=== PATIENT | male | born 1950 | race Caucasian/White ===

== ENCOUNTER 2019-08-01 11:58 | Inpatient (IN) ==
[2019-08-01] MEDS ORDERED: Vancomycin 1,750 MG/517.5 ML IV.SOLN IVPB ONE (13:11)
[2019-08-01 14:00] LABS: Basophils % 0.3 %; Eosinophils # 0.1 K/mcL (0.0-0.6); Eosinophils % 1.5 %; Hematocrit 39.6 % (37.5-50.1); Hemoglobin 12.5 g/dL (12.9-16.9); Immature Granulocytes % 0.3 % (0-4); Lymphocytes # 1.4 K/mcL (0.6-4.6); Lymphocytes % 16.4 %; Mean Corpuscular HGB Conc 31.6 g/dL (31.6-35.5); Mean Corpuscular Hemoglobin 29.8 pg (28.0-33.3); Mean Corpuscular Volume 94.3 fL (83.0-100.0); Mean Platelet Volume 9.6 fL (9.4-12.4); Monocytes # 1.1 K/mcL (0.0-1.3); Monocytes % 12.1 %; Platelet Count 278 K/mcL (140-400); Red Cell Distribution Width 13.4 % (11.5-14.5); Segmented Neutrophils % 69.4 %; White Blood Count 8.7 K/mcL (4.3-11.1)
[2019-08-01 14:45] LABS: BUN/Creatinine Ratio 18 (6-26); Blood Urea Nitrogen 16 mg/dL (8-23); Carbon Dioxide 28 mEq/L (23-29); Chloride 102 mEq/L (98-107); Glucose 142 mg/dL (70-105); Osmolality,Calculated 292 (280-300); Potassium 3.8 mEq/L (3.5-5.1); Sodium 139 mEq/L (136-145); eGFR For African Americans > 60 (> 60); eGFR For Non-African Americans > 60 (> 60)
[2019-08-01 15:35] LABS: C-Reactive Protein 201 mg/L (Less than 10)
[2019-08-01] MEDS ORDERED: Naloxone 0.4 MG/ML INJ IVP PRN (17:35)
[2019-08-01] MEDS: Aspirin Enteric Coated 81 MG Tablet PO SCH (18:41)
[2019-08-01] MEDS: Losartan/HCTZ 50-12.5 TABLET PO SCH (18:57)
[2019-08-01] MEDS: Finasteride 5 MG TABLET PO SCH (18:57)
[2019-08-01] MEDS: Insulin LISPRO 300 UNITS/3 ML VIAL SQ SCH (19:53)
[2019-08-01] MEDS ORDERED: Acetaminophen 325 MG TABLET PO PRN (19:57)
[2019-08-01] MEDS ORDERED: *HR* OxyCODONE Immed Rel 5 MG TABLET PO PRN (19:58)
[2019-08-01] MEDS ORDERED: Ketorolac 15 MG/ML VIAL IVP PRN (19:58)
[2019-08-02] MEDS ORDERED: Vancomycin 1,750 MG/517.5 ML IV.SOLN IVPB ONE (01:00)
[2019-08-02 05:53] LABS: Basophils % 0.5 %; Eosinophils # 0.2 K/mcL (0.0-0.6); Eosinophils % 2.1 %; Hematocrit 36.2 % (37.5-50.1); Hemoglobin 11.3 g/dL (12.9-16.9); Immature Granulocytes % 0.5 % (0-4); Lymphocytes # 1.8 K/mcL (0.6-4.6); Lymphocytes % 21.7 %; Mean Corpuscular HGB Conc 31.2 g/dL (31.6-35.5); Mean Corpuscular Hemoglobin 29.6 pg (28.0-33.3); Mean Corpuscular Volume 94.8 fL (83.0-100.0); Mean Platelet Volume 9.8 fL (9.4-12.4); Monocytes # 1.1 K/mcL (0.0-1.3); Monocytes % 12.9 %; Neutrophils # 5.2 K/mcL (1.6-8.9); Platelet Count 272 K/mcL (140-400); Red Blood Count 3.82 M/mcL (4.19-5.50); Red Cell Distribution Width 13.3 % (11.5-14.5); Segmented Neutrophils % 62.3 %; White Blood Count 8.3 K/mcL (4.3-11.1)
[2019-08-02 06:09] LABS: BUN/Creatinine Ratio 21 (6-26); Blood Urea Nitrogen 16 mg/dL (8-23); Calcium 9.5 mg/dL (8.6-10.3); Carbon Dioxide 27 mEq/L (23-29); Chloride 101 mEq/L (98-107); Glucose 163 mg/dL (70-105); Osmolality,Calculated 287 (280-300); Potassium 3.7 mEq/L (3.5-5.1); Sodium 136 mEq/L (136-145); eGFR For African Americans > 60 (> 60); eGFR For Non-African Americans > 60 (> 60)
[2019-08-02] MEDS: Insulin LISPRO 300 UNITS/3 ML VIAL SQ SCH ×4 (08:27→21:33)
[2019-08-02 08:40] LABS: Estimated Average Glucose 160 mg/dl
[2019-08-02] MEDS ORDERED: *HR* OxyCODONE/APAP 10/325 TABLET PO PRN (08:43)
[2019-08-02] MEDS: Vancomycin 1,250 MG/262.5 ML IV.SOLN IVPB SCH (14:24)
[2019-08-02] MEDS: Finasteride 5 MG TABLET PO SCH (17:42)
[2019-08-02] MEDS: Aspirin Enteric Coated 81 MG Tablet PO SCH (17:42)
[2019-08-02] MEDS: Losartan/HCTZ 50-12.5 TABLET PO SCH (17:42)
[2019-08-02] MEDS ORDERED: *HR* Heparin 5,000 UNIT/ML VIAL SQ SCH (18:00)
[2019-08-02] MEDS: Insulin DETEMIR 100 UNIT/ML X5UNITS SQ SCH (21:46)
[2019-08-02] MEDS: *HR* OxyCODONE/APAP 10/325 TABLET PO PRN (21:46)
[2019-08-03] MEDS ORDERED: *HR* Heparin 5,000 UNIT/ML VIAL IVP ONE (00:58)
[2019-08-03] MEDS ORDERED: *HR* Heparin 5,000 UNIT/ML VIAL IVP PRN ×2 (00:58)
[2019-08-03] MEDS ORDERED: Heparin 25,000 UNIT/250 ML D5W 25,000 UNIT/250 ML IV.SOLN IVC SCH (01:00)
[2019-08-03] MEDS: Vancomycin 1,250 MG/262.5 ML IV.SOLN IVPB SCH ×2 (01:39→13:31)
[2019-08-03 08:47] LABS: Hematocrit 39.1 % (37.5-50.1); Hemoglobin 12.5 g/dL (12.9-16.9); Mean Corpuscular Hemoglobin 29.8 pg (28.0-33.3); Mean Corpuscular Volume 93.3 fL (83.0-100.0); Mean Platelet Volume 9.1 fL (9.4-12.4); Platelet Count 289 K/mcL (140-400); Red Blood Count 4.19 M/mcL (4.19-5.50); Red Cell Distribution Width 13.2 % (11.5-14.5); White Blood Count 6.8 K/mcL (4.3-11.1)
[2019-08-03 08:50] LABS: Heparin anti-factor XA UFH 0.75 IU/mL (0.30-0.70); Prothrombin Time 11.9 Seconds (9.4-12.1)
[2019-08-03 09:11] LABS: Activated Partial Thrombo Time 163.8 Seconds (26.0-36.0)
[2019-08-03] MEDS: Insulin LISPRO 300 UNITS/3 ML VIAL SQ SCH ×4 (09:19→20:44)
[2019-08-03] MEDS: *HR* OxyCODONE/APAP 10/325 TABLET PO PRN ×2 (09:25→19:53)
[2019-08-03] MEDS: Finasteride 5 MG TABLET PO SCH (16:24)
[2019-08-03] MEDS: Losartan/HCTZ 50-12.5 TABLET PO SCH (16:24)
[2019-08-03] MEDS: Aspirin Enteric Coated 81 MG Tablet PO SCH (16:24)
[2019-08-03] MEDS: *HR* Rivaroxaban 15 MG TABLET PO SCH (16:24)
[2019-08-03] MEDS ORDERED: Warfarin perPT PO PRN (18:00)
[2019-08-03] MEDS ORDERED: *HR* Warfarin 5 MG TABLET PO ONE (18:00)
[2019-08-03] MEDS: Insulin DETEMIR 100 UNIT/ML X5UNITS SQ SCH (20:42)
[2019-08-04] MEDS: Vancomycin 1,250 MG/262.5 ML IV.SOLN IVPB SCH (01:24)
[2019-08-04 06:56] LABS: Basophils % 0.6 %; Eosinophils # 0.2 K/mcL (0.0-0.6); Eosinophils % 2.5 %; Hematocrit 39.6 % (37.5-50.1); Hemoglobin 12.9 g/dL (12.9-16.9); Immature Granulocytes % 0.4 % (0-4); Lymphocytes # 1.9 K/mcL (0.6-4.6); Lymphocytes % 27.4 %; Mean Corpuscular HGB Conc 32.6 g/dL (31.6-35.5); Mean Corpuscular Hemoglobin 30.6 pg (28.0-33.3); Mean Corpuscular Volume 94.1 fL (83.0-100.0); Mean Platelet Volume 9.1 fL (9.4-12.4); Monocytes # 0.8 K/mcL (0.0-1.3); Monocytes % 11.1 %; Neutrophils # 3.9 K/mcL (1.6-8.9); Platelet Count 312 K/mcL (140-400); Red Blood Count 4.21 M/mcL (4.19-5.50); Red Cell Distribution Width 13.2 % (11.5-14.5); White Blood Count 6.8 K/mcL (4.3-11.1)
[2019-08-04 06:57] LABS: INR 1.4; Prothrombin Time 15.5 Seconds (9.4-12.1)
[2019-08-04 07:15] LABS: BUN/Creatinine Ratio 17 (6-26); Blood Urea Nitrogen 14 mg/dL (8-23); Calcium 10.2 mg/dL (8.6-10.3); Carbon Dioxide 29 mEq/L (23-29); Chloride 101 mEq/L (98-107); Glucose 163 mg/dL (70-105); Osmolality,Calculated 290 (280-300); Sodium 138 mEq/L (136-145); eGFR For African Americans > 60 (> 60); eGFR For Non-African Americans > 60 (> 60)
[2019-08-04 07:29] VITALS: BP 161/79
[2019-08-04] MEDS: *HR* Rivaroxaban 15 MG TABLET PO SCH (07:56)
[2019-08-04] MEDS: *HR* OxyCODONE/APAP 10/325 TABLET PO PRN (07:56)
[2019-08-04] MEDS: Insulin LISPRO 300 UNITS/3 ML VIAL SQ SCH (07:58)
[2019-08-04] MEDS ORDERED: Doxycycline 100 MG CAPSULE PO SCH (09:00)
[2019-08-04] MEDS ORDERED: Sulfamethoxazole/Trimeth DS 1 EACH TABLET PO SCH (09:00)
== END 2019-08-04 10:10 | disposition home or self-care (01) | DRG 603 ==
LOC: 3ANU 11:58 → EMEROOARM 11:58 → SUATTDRO 15:16 → 3ANU 16:23 → SUATTDRO 08-02 10:56
PROVIDERS: ADMIT Internal Medicine; ATTEND Family Medicine

== ENCOUNTER 2020-01-19 19:22 | Inpatient (IN) ==
[2020-01-19] MEDS ORDERED: Dexamethasone 4 MG/ML VIAL IVP ONE (20:03)
[2020-01-19 20:20] LABS: Basophils % 0.3 %; Hematocrit 36.6 % (37.5-50.1); Hemoglobin 12.5 g/dL (12.9-16.9); Immature Granulocytes % 0.6 % (0-4); Lymphocytes # 0.5 K/mcL (0.6-4.6); Lymphocytes % 13.8 %; Mean Corpuscular HGB Conc 34.2 g/dL (31.6-35.5); Mean Corpuscular Volume 87.8 fL (83.0-100.0); Monocytes # 0.3 K/mcL (0.0-1.3); Monocytes % 8.8 %; Neutrophils # 2.8 K/mcL (1.6-8.9); Platelet Count 179 K/mcL (140-400); Red Blood Count 4.17 M/mcL (4.19-5.50); Red Cell Distribution Width 13.4 % (11.5-14.5); Segmented Neutrophils % 76.5 %; White Blood Count 3.6 K/mcL (4.3-11.1)
[2020-01-19 20:28] LABS: D-Dimer 493 ng/mLFEU (0-500); Fibrinogen 672 mg/dL (169-393)
[2020-01-19 20:44] LABS: Alanine Aminotransferase 29 Units/L (7-52); Albumin 3.9 g/dL (3.5-5.7); Albumin/Globulin Ratio 1.3 (1.1-2.2); Alkaline Phosphatase 42 Units/L (34-104); Aspartate Amino Transferase 38 Units/L (13-39); BUN/Creatinine Ratio 16 (6-26); Bilirubin,Total 0.9 mg/dL (0.3-1.0); Blood Urea Nitrogen 25 mg/dL (8-23); Calcium 8.6 mg/dL (8.6-10.3); Carbon Dioxide 25 mEq/L (23-29); Chloride 82 mEq/L (98-107); Glucose 104 mg/dL (70-105); Osmolality,Calculated 253 (280-300); Potassium 3.6 mEq/L (3.5-5.1); Sodium 119 mEq/L (136-145); Total Protein 6.9 g/dL (6.4-8.9); Troponin I < 0.03 ng/mL (< 0.04); eGFR For African Americans 55 (> 60); eGFR For Non-African Americans 45 (> 60)
[2020-01-19 20:59] LABS: Ferritin 1203 ng/mL (20-250)
[2020-01-19] MEDS ORDERED: D5% in Water 1,000 ML IVC PRN (21:47)
[2020-01-19] MEDS ORDERED: Naloxone 0.4 MG/ML INJ IVP PRN (21:47)
[2020-01-19] MEDS ORDERED: *HR* Dextrose 50 % in Water (Vial) 50 ML VIAL IVP PRN (21:47)
[2020-01-19] MEDS ORDERED: Ondansetron 4 MG/2 ML VIAL IVP PRN (21:47)
[2020-01-19] MEDS ORDERED: Dextrose Gel 15 GM/37.5 ML TUBE PO PRN ×2 (21:47)
[2020-01-19 22:47] LABS: BUN/Creatinine Ratio 19 (6-26); Blood Urea Nitrogen 26 mg/dL (8-23); Calcium 8.5 mg/dL (8.6-10.3); Carbon Dioxide 24 mEq/L (23-29); Chloride 85 mEq/L (98-107); Glucose 83 mg/dL (70-105); Osmolality,Calculated 256 (280-300); Potassium 3.8 mEq/L (3.5-5.1); Sodium 121 mEq/L (136-145); eGFR For African Americans > 60 (> 60); eGFR For Non-African Americans 51 (> 60)
[2020-01-20] MEDS ORDERED: 0.9 % Sodium Chloride 500 ML IVC SCH (00:30)
[2020-01-20] MEDS ORDERED: *HR* Heparin 5,000 UNIT/ML VIAL SQ SCH (06:00)
[2020-01-20 06:02] LABS: Basophils % 0.4 %; Hemoglobin 12.6 g/dL (12.9-16.9); Immature Granulocytes % 0.4 % (0-4); Lymphocytes # 0.6 K/mcL (0.6-4.6); Lymphocytes % 21.3 %; Mean Corpuscular HGB Conc 34.1 g/dL (31.6-35.5); Mean Corpuscular Hemoglobin 29.8 pg (28.0-33.3); Mean Corpuscular Volume 87.5 fL (83.0-100.0); Mean Platelet Volume 9.6 fL (9.4-12.4); Monocytes # 0.2 K/mcL (0.0-1.3); Monocytes % 8.7 %; Neutrophils # 1.9 K/mcL (1.6-8.9); Platelet Count 203 K/mcL (140-400); Red Blood Count 4.23 M/mcL (4.19-5.50); Red Cell Distribution Width 13.4 % (11.5-14.5); Segmented Neutrophils % 69.2 %; White Blood Count 2.8 K/mcL (4.3-11.1)
[2020-01-20 06:19] LABS: BUN/Creatinine Ratio 22 (6-26); Blood Urea Nitrogen 27 mg/dL (8-23); Calcium 8.9 mg/dL (8.6-10.3); Carbon Dioxide 25 mEq/L (23-29); Chloride 86 mEq/L (98-107); Glucose 107 mg/dL (70-105); Magnesium 1.8 mg/dL (1.6-2.6); Osmolality,Calculated 264 (280-300); Phosphorous 4.5 mg/dL (2.7-4.5); Potassium 4.1 mEq/L (3.5-5.1); Sodium 124 mEq/L (136-145); eGFR For African Americans > 60 (> 60); eGFR For Non-African Americans 58 (> 60)
[2020-01-20] MEDS: Acetaminophen 325 MG TABLET PO PRN (08:41)
[2020-01-20] MEDS: Insulin LISPRO 300 UNITS/3 ML VIAL SQ SCH ×3 (08:41→17:13)
[2020-01-20] MEDS: Dexamethasone 4 MG/ML VIAL IVP SCH (08:42)
[2020-01-20 15:07] LABS: BUN/Creatinine Ratio 26 (6-26); Blood Urea Nitrogen 28 mg/dL (8-23); Calcium 9.8 mg/dL (8.6-10.3); Carbon Dioxide 23 mEq/L (23-29); Chloride 92 mEq/L (98-107); Glucose 134 mg/dL (70-105); Osmolality,Calculated 273 (280-300); Potassium 4.7 mEq/L (3.5-5.1); Sodium 128 mEq/L (136-145); eGFR For African Americans > 60 (> 60); eGFR For Non-African Americans > 60 (> 60)
[2020-01-20] MEDS: Azithromycin 500 MG in 0.9 % Sodium Chloride 250 ML IVPB SCH (16:35)
[2020-01-20] MEDS: Finasteride 5 MG TABLET PO SCH (16:35)
[2020-01-20] MEDS: *HR* OxyCODONE/APAP 10/325 TABLET PO PRN (16:35)
[2020-01-21] MEDS: *HR* OxyCODONE/APAP 10/325 TABLET PO PRN ×3 (00:48→16:47)
[2020-01-21 01:25] LABS: Basophils % 0.2 %; Hemoglobin 13.1 g/dL (12.9-16.9); Immature Granulocytes % 0.5 % (0-4); Lymphocytes # 0.6 K/mcL (0.6-4.6); Lymphocytes % 10.2 %; Mean Corpuscular HGB Conc 33.6 g/dL (31.6-35.5); Mean Corpuscular Hemoglobin 29.3 pg (28.0-33.3); Mean Corpuscular Volume 87.2 fL (83.0-100.0); Monocytes # 0.6 K/mcL (0.0-1.3); Monocytes % 10.1 %; Neutrophils # 4.5 K/mcL (1.6-8.9); Platelet Count 243 K/mcL (140-400); Red Blood Count 4.47 M/mcL (4.19-5.50); Red Cell Distribution Width 13.2 % (11.5-14.5)
[2020-01-21 01:26] LABS: White Blood Count 5.7 K/mcL (4.3-11.1)
[2020-01-21 01:46] LABS: Alanine Aminotransferase 31 Units/L (7-52); Albumin 3.8 g/dL (3.5-5.7); Albumin/Globulin Ratio 1.1 (1.1-2.2); Alkaline Phosphatase 42 Units/L (34-104); Aspartate Amino Transferase 35 Units/L (13-39); BUN/Creatinine Ratio 24 (6-26); Bilirubin,Total 0.6 mg/dL (0.3-1.0); Blood Urea Nitrogen 23 mg/dL (8-23); C-Reactive Protein 114 mg/L (Less than 10); Calcium 9.1 mg/dL (8.6-10.3); Carbon Dioxide 26 mEq/L (23-29); Chloride 91 mEq/L (98-107); Globulin 3.4 g/dL (2.4-3.5); Glucose 128 mg/dL (70-105); Lactate Dehydrogenase 234 Units/L (140-271); Osmolality,Calculated 273 (280-300); Potassium 3.6 mEq/L (3.5-5.1); Sodium 129 mEq/L (136-145); Total Protein 7.2 g/dL (6.4-8.9); eGFR For African Americans > 60 (> 60); eGFR For Non-African Americans > 60 (> 60)
[2020-01-21 02:04] LABS: Ferritin > 1500 ng/mL (20-250)
[2020-01-21] MEDS: Losartan/HCTZ 50-12.5 TABLET PO SCH (07:30)
[2020-01-21] MEDS: Acetaminophen 325 MG TABLET PO PRN (07:30)
[2020-01-21] MEDS: Insulin LISPRO 300 UNITS/3 ML VIAL SQ SCH ×3 (07:30→16:48)
[2020-01-21] MEDS: Dexamethasone 4 MG/ML VIAL IVP SCH (07:31)
[2020-01-21] MEDS: *HR* Rivaroxaban 10 MG TABLET PO SCH (07:31)
[2020-01-21] MEDS ORDERED: Furosemide 20 MG/2 ML VIAL IVP ONE (14:18)
[2020-01-21] MEDS: Azithromycin 500 MG in 0.9 % Sodium Chloride 250 ML IVPB SCH (16:47)
[2020-01-21] MEDS: Finasteride 5 MG TABLET PO SCH (16:48)
[2020-01-22] MEDS: *HR* OxyCODONE/APAP 10/325 TABLET PO PRN ×2 (02:48→11:51)
[2020-01-22 08:17] LABS: Basophils % 0.2 %; Hematocrit 38.2 % (37.5-50.1); Hemoglobin 12.6 g/dL (12.9-16.9); Immature Granulocytes % 0.8 % (0-4); Lymphocytes # 0.7 K/mcL (0.6-4.6); Mean Corpuscular Hemoglobin 29.8 pg (28.0-33.3); Mean Corpuscular Volume 90.3 fL (83.0-100.0); Mean Platelet Volume 8.8 fL (9.4-12.4); Monocytes # 0.5 K/mcL (0.0-1.3); Monocytes % 7.9 %; Neutrophils # 5.2 K/mcL (1.6-8.9); Platelet Count 271 K/mcL (140-400); Red Blood Count 4.23 M/mcL (4.19-5.50); Red Cell Distribution Width 13.6 % (11.5-14.5); Segmented Neutrophils % 80.1 %; White Blood Count 6.4 K/mcL (4.3-11.1)
[2020-01-22 08:23] LABS: Albumin 3.7 g/dL (3.5-5.7); Albumin/Globulin Ratio 1.1 (1.1-2.2); Bilirubin,Total 0.6 mg/dL (0.3-1.0); Calcium 8.9 mg/dL (8.6-10.3); Globulin 3.4 g/dL (2.4-3.5); Potassium 3.5 mEq/L (3.5-5.1); Total Protein 7.1 g/dL (6.4-8.9)
[2020-01-22] MEDS: Losartan/HCTZ 50-12.5 TABLET PO SCH (09:12)
[2020-01-22] MEDS: Dexamethasone 4 MG/ML VIAL IVP SCH (09:13)
[2020-01-22] MEDS: *HR* Rivaroxaban 10 MG TABLET PO SCH (09:13)
[2020-01-22] MEDS: Insulin LISPRO 300 UNITS/3 ML VIAL SQ SCH ×3 (09:13→16:13)
[2020-01-22] MEDS: Finasteride 5 MG TABLET PO SCH (16:12)
[2020-01-22] MEDS: Benzonatate 100 MG CAPSULE PO PRN ×2 (16:12→21:07)
[2020-01-22] MEDS: Azithromycin 500 MG in 0.9 % Sodium Chloride 250 ML IVPB SCH (16:13)
[2020-01-23 02:21] LABS: Basophils % 0.2 %; Hematocrit 38.2 % (37.5-50.1); Hemoglobin 12.7 g/dL (12.9-16.9); Immature Granulocytes % 0.8 % (0-4); Lymphocytes # 0.7 K/mcL (0.6-4.6); Lymphocytes % 7.5 %; Mean Corpuscular HGB Conc 33.2 g/dL (31.6-35.5); Mean Corpuscular Hemoglobin 29.7 pg (28.0-33.3); Mean Corpuscular Volume 89.3 fL (83.0-100.0); Mean Platelet Volume 8.7 fL (9.4-12.4); Monocytes # 0.6 K/mcL (0.0-1.3); Monocytes % 6.4 %; Neutrophils # 7.9 K/mcL (1.6-8.9); Platelet Count 312 K/mcL (140-400); Red Blood Count 4.28 M/mcL (4.19-5.50); Red Cell Distribution Width 13.4 % (11.5-14.5); Segmented Neutrophils % 85.1 %; White Blood Count 9.2 K/mcL (4.3-11.1)
[2020-01-23 02:37] LABS: Alanine Aminotransferase 33 Units/L (7-52); Albumin 3.5 g/dL (3.5-5.7); Alkaline Phosphatase 51 Units/L (34-104); Aspartate Amino Transferase 30 Units/L (13-39); BUN/Creatinine Ratio 23 (6-26); Bilirubin,Total 0.6 mg/dL (0.3-1.0); Blood Urea Nitrogen 39 mg/dL (8-23); C-Reactive Protein 160 mg/L (Less than 10); Calcium 8.8 mg/dL (8.6-10.3); Carbon Dioxide 29 mEq/L (23-29); Chloride 90 mEq/L (98-107); Globulin 3.6 g/dL (2.4-3.5); Glucose 162 mg/dL (70-105); Lactate Dehydrogenase 260 Units/L (140-271); Osmolality,Calculated 281 (280-300); Potassium 4.1 mEq/L (3.5-5.1); Sodium 129 mEq/L (136-145); Total Protein 7.1 g/dL (6.4-8.9); eGFR For African Americans 48 (> 60); eGFR For Non-African Americans 39 (> 60)
[2020-01-23 03:17] LABS: Ferritin > 1500 ng/mL (20-250)
[2020-01-23] MEDS: *HR* OxyCODONE/APAP 10/325 TABLET PO PRN ×3 (04:07→21:08)
[2020-01-23] MEDS: polyethylene glycoL 3350 17 GM POWD.PACK PO PRN (04:07)
[2020-01-23] MEDS: Acetaminophen 325 MG TABLET PO PRN (06:06)
[2020-01-23] MEDS: Insulin LISPRO 300 UNITS/3 ML VIAL SQ SCH ×3 (08:04→17:18)
[2020-01-23] MEDS: Dexamethasone 4 MG/ML VIAL IVP SCH (08:04)
[2020-01-23] MEDS: *HR* Rivaroxaban 10 MG TABLET PO SCH (08:04)
[2020-01-23] MEDS: Azithromycin 500 MG in 0.9 % Sodium Chloride 250 ML IVPB SCH (17:16)
[2020-01-23] MEDS: Finasteride 5 MG TABLET PO SCH (17:16)
[2020-01-23] MEDS: Benzonatate 100 MG CAPSULE PO PRN (20:50)
[2020-01-24] MEDS: Ipratropium 1 PUFF INHALER IH SCH ×7 (00:07→23:38)
[2020-01-24 02:11] LABS: Basophils % 0.3 %; Hematocrit 37.7 % (37.5-50.1); Hemoglobin 12.5 g/dL (12.9-16.9); Immature Granulocytes % 0.9 % (0-4); Lymphocytes # 0.6 K/mcL (0.6-4.6); Lymphocytes % 6.8 %; Mean Corpuscular HGB Conc 33.2 g/dL (31.6-35.5); Mean Corpuscular Hemoglobin 29.6 pg (28.0-33.3); Mean Corpuscular Volume 89.3 fL (83.0-100.0); Mean Platelet Volume 8.9 fL (9.4-12.4); Monocytes # 0.6 K/mcL (0.0-1.3); Monocytes % 6.6 %; Neutrophils # 7.9 K/mcL (1.6-8.9); Platelet Count 341 K/mcL (140-400); Red Blood Count 4.22 M/mcL (4.19-5.50); Red Cell Distribution Width 13.5 % (11.5-14.5); Segmented Neutrophils % 85.4 %; White Blood Count 9.2 K/mcL (4.3-11.1)
[2020-01-24 02:28] LABS: Alanine Aminotransferase 52 Units/L (7-52); Albumin 3.4 g/dL (3.5-5.7); Albumin/Globulin Ratio 0.9 (1.1-2.2); Alkaline Phosphatase 61 Units/L (34-104); Aspartate Amino Transferase 39 Units/L (13-39); BUN/Creatinine Ratio 28 (6-26); Bilirubin,Total 0.6 mg/dL (0.3-1.0); Blood Urea Nitrogen 35 mg/dL (8-23); Calcium 9.2 mg/dL (8.6-10.3); Carbon Dioxide 31 mEq/L (23-29); Chloride 91 mEq/L (98-107); Globulin 3.6 g/dL (2.4-3.5); Glucose 168 mg/dL (70-105); Osmolality,Calculated 286 (280-300); Potassium 4.2 mEq/L (3.5-5.1); Sodium 132 mEq/L (136-145); eGFR For African Americans > 60 (> 60); eGFR For Non-African Americans 58 (> 60)
[2020-01-24] MEDS: Dexamethasone 4 MG/ML VIAL IVP SCH (07:54)
[2020-01-24] MEDS: Insulin LISPRO 300 UNITS/3 ML VIAL SQ SCH ×3 (07:55→16:13)
[2020-01-24] MEDS: *HR* OxyCODONE/APAP 10/325 TABLET PO PRN ×2 (08:12→17:10)
[2020-01-24] MEDS: Benzonatate 100 MG CAPSULE PO PRN ×2 (08:12→17:10)
[2020-01-24] MEDS ORDERED: *HR* Rivaroxaban 15 MG TABLET PO SCH (09:00)
[2020-01-24] MEDS ORDERED: *HR* Rivaroxaban 10 MG TABLET PO SCH (09:00)
[2020-01-24] MEDS ORDERED: Remdesivir 200 MG in 0.9 % Sodium Chloride 100 ML IVPB ONE (14:00)
[2020-01-24] MEDS: Finasteride 5 MG TABLET PO SCH (17:10)
[2020-01-24] MEDS: Azithromycin 500 MG in 0.9 % Sodium Chloride 250 ML IVPB SCH (17:10)
[2020-01-25] MEDS: Benzonatate 100 MG CAPSULE PO PRN ×3 (01:24→19:37)
[2020-01-25] MEDS: *HR* OxyCODONE/APAP 10/325 TABLET PO PRN ×3 (01:25→19:36)
[2020-01-25] MEDS: Ipratropium 1 PUFF INHALER IH SCH ×5 (03:26→20:41)
[2020-01-25 06:41] LABS: Basophils % 0.3 %; Hematocrit 39.7 % (37.5-50.1); Immature Granulocytes % 1.1 % (0-4); Lymphocytes # 0.8 K/mcL (0.6-4.6); Lymphocytes % 6.6 %; Mean Corpuscular HGB Conc 32.7 g/dL (31.6-35.5); Mean Corpuscular Hemoglobin 30.3 pg (28.0-33.3); Mean Corpuscular Volume 92.5 fL (83.0-100.0); Mean Platelet Volume 9.1 fL (9.4-12.4); Monocytes # 0.9 K/mcL (0.0-1.3); Monocytes % 7.8 %; Platelet Count 447 K/mcL (140-400); Red Blood Count 4.29 M/mcL (4.19-5.50); Red Cell Distribution Width 13.5 % (11.5-14.5); Segmented Neutrophils % 84.2 %; White Blood Count 11.8 K/mcL (4.3-11.1)
[2020-01-25 06:53] LABS: INR 1.4; Prothrombin Time 16.4 Seconds (9.4-12.1)
[2020-01-25 07:26] LABS: Alanine Aminotransferase 51 Units/L (7-52); Albumin 3.5 g/dL (3.5-5.7); Albumin/Globulin Ratio 0.9 (1.1-2.2); Alkaline Phosphatase 66 Units/L (34-104); Aspartate Amino Transferase 33 Units/L (13-39); BUN/Creatinine Ratio 33 (6-26); Bilirubin,Total 0.6 mg/dL (0.3-1.0); Blood Urea Nitrogen 38 mg/dL (8-23); Calcium 9.4 mg/dL (8.6-10.3); Carbon Dioxide 34 mEq/L (23-29); Chloride 92 mEq/L (98-107); Glucose 190 mg/dL (70-105); Osmolality,Calculated 290 (280-300); Potassium 4.9 mEq/L (3.5-5.1); Sodium 133 mEq/L (136-145); Total Protein 7.5 g/dL (6.4-8.9); eGFR For African Americans > 60 (> 60); eGFR For Non-African Americans > 60 (> 60)
[2020-01-25] MEDS: Insulin LISPRO 300 UNITS/3 ML VIAL SQ SCH ×3 (07:39→17:20)
[2020-01-25] MEDS: *HR* Rivaroxaban 10 MG TABLET PO SCH (07:42)
[2020-01-25] MEDS: Dexamethasone 4 MG/ML VIAL IVP SCH (07:42)
[2020-01-25] MEDS: Furosemide 20 MG/2 ML VIAL IVP SCH (11:50)
[2020-01-25] MEDS: Remdesivir 100 MG in 0.9 % Sodium Chloride 100 ML IVPB SCH (15:16)
[2020-01-25] MEDS: Finasteride 5 MG TABLET PO SCH (17:21)
[2020-01-26] MEDS: Ipratropium 1 PUFF INHALER IH SCH ×7 (00:30→23:15)
[2020-01-26] MEDS ORDERED: *HR* LORazepam 2 MG/ML VIAL IVP ONE (04:07)
[2020-01-26] MEDS: Dexamethasone 4 MG/ML VIAL IVP SCH (08:32)
[2020-01-26] MEDS: *HR* Rivaroxaban 10 MG TABLET PO SCH (08:32)
[2020-01-26] MEDS: Furosemide 20 MG/2 ML VIAL IVP SCH ×2 (08:33→15:57)
[2020-01-26 09:29] LABS: Hematocrit 41.6 % (37.5-50.1); Hemoglobin 13.5 g/dL (12.9-16.9); Mean Corpuscular HGB Conc 32.5 g/dL (31.6-35.5); Mean Corpuscular Volume 92.4 fL (83.0-100.0); Mean Platelet Volume 8.9 fL (9.4-12.4); Platelet Count 300 K/mcL (140-400); Red Cell Distribution Width 13.5 % (11.5-14.5); White Blood Count 11.8 K/mcL (4.3-11.1)
[2020-01-26] MEDS: *HR* OxyCODONE/APAP 10/325 TABLET PO PRN ×2 (09:30→17:15)
[2020-01-26 09:31] LABS: INR 1.2; Prothrombin Time 14.2 Seconds (9.4-12.1)
[2020-01-26] MEDS: Insulin LISPRO 300 UNITS/3 ML VIAL SQ SCH ×3 (09:44→17:12)
[2020-01-26 09:48] LABS: Alanine Aminotransferase 49 Units/L (7-52); Albumin 3.4 g/dL (3.5-5.7); Albumin/Globulin Ratio 0.9 (1.1-2.2); Alkaline Phosphatase 70 Units/L (34-104); Aspartate Amino Transferase 27 Units/L (13-39); BUN/Creatinine Ratio 36 (6-26); Bilirubin,Total 0.7 mg/dL (0.3-1.0); Blood Urea Nitrogen 35 mg/dL (8-23); Calcium 9.4 mg/dL (8.6-10.3); Carbon Dioxide 32 mEq/L (23-29); Chloride 94 mEq/L (98-107); Glucose 199 mg/dL (70-105); Osmolality,Calculated 294 (280-300); Potassium 4.4 mEq/L (3.5-5.1); Sodium 135 mEq/L (136-145); Total Protein 7.4 g/dL (6.4-8.9); eGFR For African Americans > 60 (> 60); eGFR For Non-African Americans > 60 (> 60)
[2020-01-26] MEDS: Remdesivir 100 MG in 0.9 % Sodium Chloride 100 ML IVPB SCH (15:58)
[2020-01-26] MEDS: Morphine Sulfate Oral CONC 10 MG/0.5 ML ORAL.SYG SL PRN ×2 (15:58→20:43)
[2020-01-26] MEDS: Acetaminophen 325 MG TABLET PO PRN (16:10)
[2020-01-26] MEDS: Finasteride 5 MG TABLET PO SCH (17:15)
[2020-01-26] MEDS ORDERED: Insulin DETEMIR 100 UNIT/ML X5UNITS SQ SCH (21:00)
[2020-01-27] MEDS: *HR* OxyCODONE/APAP 10/325 TABLET PO PRN ×3 (00:26→17:11)
[2020-01-27] MEDS ORDERED: *HR* Labetalol 20 MG/4 ML SYRINGE IVP ONE (03:17)
[2020-01-27] MEDS: Ipratropium 1 PUFF INHALER IH SCH ×5 (03:28→19:42)
[2020-01-27 04:59] LABS: Hematocrit 41.2 % (37.5-50.1); Hemoglobin 13.2 g/dL (12.9-16.9); Mean Corpuscular Hemoglobin 29.1 pg (28.0-33.3); Mean Corpuscular Volume 90.9 fL (83.0-100.0); Mean Platelet Volume 8.9 fL (9.4-12.4); Platelet Count 260 K/mcL (140-400); Red Blood Count 4.53 M/mcL (4.19-5.50); Red Cell Distribution Width 13.3 % (11.5-14.5); White Blood Count 11.8 K/mcL (4.3-11.1)
[2020-01-27 05:02] LABS: INR 1.6; Prothrombin Time 18.6 Seconds (9.4-12.1)
[2020-01-27 05:07] LABS: Alanine Aminotransferase 38 Units/L (7-52); Albumin 3.2 g/dL (3.5-5.7); Albumin/Globulin Ratio 0.8 (1.1-2.2); Alkaline Phosphatase 66 Units/L (34-104); Aspartate Amino Transferase 19 Units/L (13-39); BUN/Creatinine Ratio 43 (6-26); Bilirubin,Total 0.7 mg/dL (0.3-1.0); Blood Urea Nitrogen 34 mg/dL (8-23); Carbon Dioxide 31 mEq/L (23-29); Chloride 95 mEq/L (98-107); Globulin 3.8 g/dL (2.4-3.5); Glucose 209 mg/dL (70-105); Osmolality,Calculated 292 (280-300); Potassium 4.4 mEq/L (3.5-5.1); Sodium 134 mEq/L (136-145); eGFR For African Americans > 60 (> 60); eGFR For Non-African Americans > 60 (> 60)
[2020-01-27] MEDS: Insulin LISPRO 300 UNITS/3 ML VIAL SQ SCH ×3 (07:57→16:40)
[2020-01-27] MEDS: Dexamethasone 4 MG/ML VIAL IVP SCH (07:59)
[2020-01-27] MEDS: *HR* Rivaroxaban 10 MG TABLET PO SCH (07:59)
[2020-01-27] MEDS: Furosemide 20 MG/2 ML VIAL IVP SCH ×2 (08:00→17:10)
[2020-01-27] MEDS: Morphine Sulfate Oral CONC 10 MG/0.5 ML ORAL.SYG SL PRN ×3 (08:20→20:06)
[2020-01-27] MEDS: Remdesivir 100 MG in 0.9 % Sodium Chloride 100 ML IVPB SCH (15:23)
[2020-01-27] MEDS: Finasteride 5 MG TABLET PO SCH (17:11)
[2020-01-27] MEDS: Insulin DETEMIR 100 UNIT/ML X5UNITS SQ SCH (20:05)
[2020-01-28] MEDS: Ipratropium 1 PUFF INHALER IH SCH ×7 (00:20→23:14)
[2020-01-28] MEDS: *HR* OxyCODONE/APAP 10/325 TABLET PO PRN ×3 (01:16→16:36)
[2020-01-28] MEDS ORDERED: Morphine Sulfate 2 MG/ML SYRINGE IVP ONE (02:01)
[2020-01-28] MEDS: Morphine Sulfate Oral CONC 10 MG/0.5 ML ORAL.SYG SL PRN ×5 (04:14→20:31)
[2020-01-28 05:05] LABS: Hematocrit 40.1 % (37.5-50.1); Hemoglobin 13.4 g/dL (12.9-16.9); Mean Corpuscular HGB Conc 33.4 g/dL (31.6-35.5); Mean Corpuscular Hemoglobin 30.6 pg (28.0-33.3); Mean Corpuscular Volume 91.6 fL (83.0-100.0); Mean Platelet Volume 9.3 fL (9.4-12.4); Platelet Count 213 K/mcL (140-400); Red Blood Count 4.38 M/mcL (4.19-5.50); Red Cell Distribution Width 13.2 % (11.5-14.5); White Blood Count 13.4 K/mcL (4.3-11.1)
[2020-01-28 05:06] LABS: INR 1.6; Prothrombin Time 18.8 Seconds (9.4-12.1)
[2020-01-28 05:13] LABS: Alanine Aminotransferase 30 Units/L (7-52); Albumin 3.1 g/dL (3.5-5.7); Albumin/Globulin Ratio 0.8 (1.1-2.2); Alkaline Phosphatase 67 Units/L (34-104); Aspartate Amino Transferase 17 Units/L (13-39); BUN/Creatinine Ratio 40 (6-26); Bilirubin,Total 0.7 mg/dL (0.3-1.0); Blood Urea Nitrogen 34 mg/dL (8-23); Calcium 8.9 mg/dL (8.6-10.3); Carbon Dioxide 32 mEq/L (23-29); Chloride 95 mEq/L (98-107); Globulin 3.7 g/dL (2.4-3.5); Glucose 199 mg/dL (70-105); Osmolality,Calculated 291 (280-300); Potassium 4.2 mEq/L (3.5-5.1); Sodium 134 mEq/L (136-145); Total Protein 6.8 g/dL (6.4-8.9); eGFR For African Americans > 60 (> 60); eGFR For Non-African Americans > 60 (> 60)
[2020-01-28 05:29] LABS: VBG HCO3 33 mEq/L (21-27); VBG PCO2 56 mmHg (41-51); VBG PH 7.38 pH Units (7.32-7.42); VBG PO2 101 mmHg (25-50)
[2020-01-28] MEDS: Dexamethasone 4 MG/ML VIAL IVP SCH (07:54)
[2020-01-28] MEDS: *HR* Rivaroxaban 10 MG TABLET PO SCH (07:57)
[2020-01-28] MEDS: Furosemide 20 MG/2 ML VIAL IVP SCH ×2 (07:57→16:36)
[2020-01-28] MEDS: polyethylene glycoL 3350 17 GM POWD.PACK PO PRN (08:00)
[2020-01-28] MEDS: Insulin LISPRO 300 UNITS/3 ML VIAL SQ SCH ×3 (08:07→16:36)
[2020-01-28] MEDS: Benzonatate 100 MG CAPSULE PO PRN (10:12)
[2020-01-28] MEDS: Insulin DETEMIR 100 UNIT/ML X5UNITS SQ SCH ×2 (10:13→20:31)
[2020-01-28] MEDS: Remdesivir 100 MG in 0.9 % Sodium Chloride 100 ML IVPB SCH (13:45)
[2020-01-28] MEDS: Finasteride 5 MG TABLET PO SCH (17:54)
[2020-01-28] MEDS: hydrOXYzine pamoate 25 MG CAPSULE PO PRN (20:30)
[2020-01-29] MEDS: *HR* OxyCODONE/APAP 10/325 TABLET PO PRN ×3 (00:54→20:31)
[2020-01-29] MEDS: hydrOXYzine pamoate 25 MG CAPSULE PO PRN (00:56)
[2020-01-29] MEDS: Ipratropium 1 PUFF INHALER IH SCH ×6 (04:25→23:22)
[2020-01-29] MEDS: Dexamethasone 4 MG/ML VIAL IVP SCH (07:40)
[2020-01-29] MEDS: Furosemide 20 MG/2 ML VIAL IVP SCH ×2 (07:40→15:49)
[2020-01-29] MEDS: *HR* Rivaroxaban 10 MG TABLET PO SCH (07:41)
[2020-01-29] MEDS: Insulin DETEMIR 100 UNIT/ML X5UNITS SQ SCH ×2 (07:41→19:45)
[2020-01-29] MEDS: Insulin LISPRO 300 UNITS/3 ML VIAL SQ SCH ×3 (07:41→15:50)
[2020-01-29] MEDS: Finasteride 5 MG TABLET PO SCH (15:50)
[2020-01-29] MEDS: Morphine Sulfate Oral CONC 10 MG/0.5 ML ORAL.SYG SL PRN (15:50)
[2020-01-29] MEDS: Acetaminophen 325 MG TABLET PO PRN (23:39)
[2020-01-30] MEDS: Morphine Sulfate Oral CONC 10 MG/0.5 ML ORAL.SYG SL PRN ×3 (00:58→20:15)
[2020-01-30] MEDS: Ipratropium 1 PUFF INHALER IH SCH ×6 (03:08→23:39)
[2020-01-30] MEDS: *HR* OxyCODONE/APAP 10/325 TABLET PO PRN ×4 (04:31→21:30)
[2020-01-30] MEDS: *HR* Rivaroxaban 10 MG TABLET PO SCH (08:00)
[2020-01-30] MEDS: Furosemide 20 MG/2 ML VIAL IVP SCH ×2 (08:01→17:06)
[2020-01-30] MEDS: Dexamethasone 4 MG/ML VIAL IVP SCH (08:01)
[2020-01-30] MEDS: Insulin LISPRO 300 UNITS/3 ML VIAL SQ SCH ×4 (08:05→17:09)
[2020-01-30] MEDS: Insulin DETEMIR 100 UNIT/ML X5UNITS SQ SCH ×2 (08:06→20:13)
[2020-01-30 11:32] LABS: Hematocrit 40.9 % (37.5-50.1); Hemoglobin 13.2 g/dL (12.9-16.9); Mean Corpuscular HGB Conc 32.3 g/dL (31.6-35.5); Mean Corpuscular Hemoglobin 29.4 pg (28.0-33.3); Mean Corpuscular Volume 91.1 fL (83.0-100.0); Mean Platelet Volume 9.7 fL (9.4-12.4); Platelet Count 205 K/mcL (140-400); Red Blood Count 4.49 M/mcL (4.19-5.50); Red Cell Distribution Width 13.3 % (11.5-14.5); White Blood Count 16.5 K/mcL (4.3-11.1)
[2020-01-30 11:37] LABS: BUN/Creatinine Ratio 39 (6-26); Blood Urea Nitrogen 35 mg/dL (8-23); Calcium 8.7 mg/dL (8.6-10.3); Carbon Dioxide 32 mEq/L (23-29); Chloride 92 mEq/L (98-107); Glucose 305 mg/dL (70-105); Magnesium 1.7 mg/dL (1.6-2.6); Osmolality,Calculated 293 (280-300); Potassium 4.6 mEq/L (3.5-5.1); Sodium 132 mEq/L (136-145); eGFR For African Americans > 60 (> 60); eGFR For Non-African Americans > 60 (> 60)
[2020-01-30] MEDS: Finasteride 5 MG TABLET PO SCH (17:07)
[2020-01-31] MEDS: Ipratropium 1 PUFF INHALER IH SCH ×6 (03:37→23:45)
[2020-01-31] MEDS: *HR* OxyCODONE/APAP 10/325 TABLET PO PRN ×4 (04:31→19:32)
[2020-01-31] MEDS: Insulin LISPRO 300 UNITS/3 ML VIAL SQ SCH ×6 (08:10→17:10)
[2020-01-31] MEDS: *HR* Metoprolol 5 MG/5 ML VIAL IVP PRN ×3 (09:01→09:57)
[2020-01-31] MEDS: Furosemide 20 MG/2 ML VIAL IVP SCH ×2 (09:29→17:14)
[2020-01-31] MEDS: Dexamethasone 4 MG/ML VIAL IVP SCH (09:29)
[2020-01-31] MEDS: Insulin DETEMIR 100 UNIT/ML X5UNITS SQ SCH ×2 (09:30→20:32)
[2020-01-31] MEDS: *HR* Rivaroxaban 10 MG TABLET PO SCH (09:30)
[2020-01-31] MEDS ORDERED: DilTIAZem 50 MG/50 ML IV.SOLN IVC SCH (11:30)
[2020-01-31] MEDS ORDERED: Perflutren Lipid Microsphere 1.3 ML in 0.9 % Sodium Chloride 8.7 ML IVP PRN (11:47)
[2020-01-31 13:23] LABS: BUN/Creatinine Ratio 42 (6-26); Blood Urea Nitrogen 38 mg/dL (8-23); Calcium 9.2 mg/dL (8.6-10.3); Carbon Dioxide 33 mEq/L (23-29); Chloride 93 mEq/L (98-107); Glucose 295 mg/dL (70-105); Magnesium 1.8 mg/dL (1.6-2.6); Osmolality,Calculated 296 (280-300); Phosphorous 3.1 mg/dL (2.7-4.5); Potassium 4.8 mEq/L (3.5-5.1); Sodium 133 mEq/L (136-145); Troponin I < 0.03 ng/mL (< 0.04); eGFR For African Americans > 60 (> 60); eGFR For Non-African Americans > 60 (> 60)
[2020-01-31] MEDS: *HR* Digoxin 0.5 MG/2 ML AMPUL IVP SCH ×2 (17:11→22:33)
[2020-01-31] MEDS: Nystatin SUSP 5 ML UD.LIQ PO SCH ×2 (17:13→19:33)
[2020-01-31] MEDS: Finasteride 5 MG TABLET PO SCH (17:14)
[2020-01-31] MEDS: DilTIAZem 50 MG/50 ML IV.SOLN IVC SCH ×2 (17:43→21:38)
[2020-01-31] MEDS: cefTRIAXone 1,000 MG in Water for inj. (sterile) 10 ML IVP SCH (17:49)
[2020-02-01] MEDS: *HR* OxyCODONE/APAP 10/325 TABLET PO PRN ×4 (00:02→17:35)
[2020-02-01] MEDS: DilTIAZem 50 MG/50 ML IV.SOLN IVC SCH ×4 (01:44→13:21)
[2020-02-01] MEDS: Ipratropium 1 PUFF INHALER IH SCH ×6 (03:41→23:21)
[2020-02-01] MEDS: *HR* Digoxin 0.5 MG/2 ML AMPUL IVP SCH (04:10)
[2020-02-01 05:25] LABS: Hematocrit 44.2 % (37.5-50.1); Hemoglobin 14.2 g/dL (12.9-16.9); Mean Corpuscular HGB Conc 32.1 g/dL (31.6-35.5); Mean Corpuscular Hemoglobin 29.5 pg (28.0-33.3); Mean Corpuscular Volume 91.7 fL (83.0-100.0); Mean Platelet Volume 9.8 fL (9.4-12.4); Platelet Count 198 K/mcL (140-400); Red Blood Count 4.82 M/mcL (4.19-5.50); Red Cell Distribution Width 13.2 % (11.5-14.5); White Blood Count 17.1 K/mcL (4.3-11.1)
[2020-02-01 05:44] LABS: BUN/Creatinine Ratio 43 (6-26); Blood Urea Nitrogen 34 mg/dL (8-23); Carbon Dioxide 34 mEq/L (23-29); Chloride 94 mEq/L (98-107); Glucose 183 mg/dL (70-105); Magnesium 1.7 mg/dL (1.6-2.6); Osmolality,Calculated 290 (280-300); Potassium 4.4 mEq/L (3.5-5.1); Sodium 134 mEq/L (136-145); eGFR For African Americans > 60 (> 60); eGFR For Non-African Americans > 60 (> 60)
[2020-02-01] MEDS: *HR* Rivaroxaban 10 MG TABLET PO SCH (09:28)
[2020-02-01] MEDS: Nystatin SUSP 5 ML UD.LIQ PO SCH ×4 (09:28→19:41)
[2020-02-01] MEDS: cefTRIAXone 1,000 MG in Water for inj. (sterile) 10 ML IVP SCH (09:28)
[2020-02-01] MEDS: Dexamethasone 4 MG/ML VIAL IVP SCH (09:29)
[2020-02-01] MEDS: Insulin LISPRO 300 UNITS/3 ML VIAL SQ SCH ×6 (09:29→17:32)
[2020-02-01] MEDS: Insulin DETEMIR 100 UNIT/ML X5UNITS SQ SCH ×2 (09:31→20:06)
[2020-02-01] MEDS ORDERED: *HR* Digoxin 0.5 MG/2 ML AMPUL IVP SCH (11:00)
[2020-02-01] MEDS: Levalbuterol 1 PUFF INHALER IH SCH ×3 (15:34→23:21)
[2020-02-01] MEDS: Finasteride 5 MG TABLET PO SCH (17:33)
[2020-02-01] MEDS: hydrOXYzine pamoate 25 MG CAPSULE PO PRN (19:42)
[2020-02-01] MEDS ORDERED: Preparation H Ointment 57 GM TUBE TP PRN (21:22)
[2020-02-01] MEDS: Furosemide 40 MG/4 ML VIAL IVP SCH (21:28)
[2020-02-02] MEDS: Ipratropium 1 PUFF INHALER IH SCH ×6 (03:41→23:37)
[2020-02-02] MEDS: Levalbuterol 1 PUFF INHALER IH SCH ×6 (03:41→23:36)
[2020-02-02] MEDS: *HR* OxyCODONE/APAP 10/325 TABLET PO PRN ×4 (03:50→21:32)
[2020-02-02] MEDS: Nystatin Cream 15 GM TUBE TP SCH ×4 (03:51→21:13)
[2020-02-02 03:57] LABS: BUN/Creatinine Ratio 38 (6-26); Blood Urea Nitrogen 30 mg/dL (8-23); Calcium 8.9 mg/dL (8.6-10.3); Carbon Dioxide 37 mEq/L (23-29); Chloride 93 mEq/L (98-107); Glucose 209 mg/dL (70-105); Magnesium 1.8 mg/dL (1.6-2.6); Osmolality,Calculated 294 (280-300); Potassium 4.8 mEq/L (3.5-5.1); Sodium 136 mEq/L (136-145); eGFR For African Americans > 60 (> 60); eGFR For Non-African Americans > 60 (> 60)
[2020-02-02 04:07] LABS: Basophils % 0.1 %; Hematocrit 42.8 % (37.5-50.1); Hemoglobin 13.5 g/dL (12.9-16.9); Immature Granulocytes % 0.9 % (0-4); Lymphocytes # 0.8 K/mcL (0.6-4.6); Lymphocytes % 6.4 %; Mean Corpuscular HGB Conc 31.5 g/dL (31.6-35.5); Mean Platelet Volume 10.1 fL (9.4-12.4); Monocytes # 0.8 K/mcL (0.0-1.3); Monocytes % 6.9 %; Neutrophils # 10.2 K/mcL (1.6-8.9); Platelet Count 178 K/mcL (140-400); Red Blood Count 4.65 M/mcL (4.19-5.50); Red Cell Distribution Width 13.2 % (11.5-14.5); Segmented Neutrophils % 85.7 %; White Blood Count 11.9 K/mcL (4.3-11.1)
[2020-02-02] MEDS: Spironolactone 25 MG TABLET PO SCH (08:21)
[2020-02-02] MEDS: *HR* Digoxin 0.125 MG TABLET PO SCH (08:21)
[2020-02-02] MEDS: cefTRIAXone 1,000 MG in Water for inj. (sterile) 10 ML IVP SCH (08:22)
[2020-02-02] MEDS: Furosemide 40 MG/4 ML VIAL IVP SCH ×2 (08:22→21:28)
[2020-02-02] MEDS: *HR* Rivaroxaban 10 MG TABLET PO SCH (08:22)
[2020-02-02] MEDS: Nystatin SUSP 5 ML UD.LIQ PO SCH ×4 (08:22→21:30)
[2020-02-02] MEDS: Insulin LISPRO 300 UNITS/3 ML VIAL SQ SCH ×6 (08:25→17:14)
[2020-02-02] MEDS: Insulin DETEMIR 100 UNIT/ML X5UNITS SQ SCH (08:27)
[2020-02-02] MEDS: Dexamethasone 4 MG/ML VIAL IVP SCH (08:31)
[2020-02-02] MEDS: Finasteride 5 MG TABLET PO SCH (17:10)
[2020-02-02] MEDS: Insulin DETEMIR 100 UNIT/ML X5UNITS SUBQ SCH (21:26)
[2020-02-02] MEDS: Lactobacillus 1 EACH CAP.SPRINK PO SCH (21:31)
[2020-02-02] MEDS: hydrOXYzine pamoate 25 MG CAPSULE PO PRN (21:32)
[2020-02-03 01:44] LABS: Basophils % 0.1 %; Hematocrit 43.3 % (37.5-50.1); Hemoglobin 13.9 g/dL (12.9-16.9); Immature Granulocytes % 0.7 % (0-4); Lymphocytes # 0.8 K/mcL (0.6-4.6); Lymphocytes % 5.4 %; Mean Corpuscular HGB Conc 32.1 g/dL (31.6-35.5); Mean Corpuscular Hemoglobin 29.4 pg (28.0-33.3); Mean Corpuscular Volume 91.7 fL (83.0-100.0); Mean Platelet Volume 9.8 fL (9.4-12.4); Monocytes # 1.1 K/mcL (0.0-1.3); Monocytes % 7.7 %; Neutrophils # 12.7 K/mcL (1.6-8.9); Platelet Count 218 K/mcL (140-400); Red Blood Count 4.72 M/mcL (4.19-5.50); Red Cell Distribution Width 13.1 % (11.5-14.5); Segmented Neutrophils % 86.1 %; White Blood Count 14.8 K/mcL (4.3-11.1)
[2020-02-03 01:54] LABS: BUN/Creatinine Ratio 44 (6-26); Blood Urea Nitrogen 37 mg/dL (8-23); Calcium 9.1 mg/dL (8.6-10.3); Carbon Dioxide 33 mEq/L (23-29); Chloride 95 mEq/L (98-107); Glucose 200 mg/dL (70-105); Magnesium 1.9 mg/dL (1.6-2.6); Osmolality,Calculated 294 (280-300); Potassium 4.7 mEq/L (3.5-5.1); Sodium 135 mEq/L (136-145); eGFR For African Americans > 60 (> 60); eGFR For Non-African Americans > 60 (> 60)
[2020-02-03] MEDS: Ipratropium 1 PUFF INHALER IH SCH ×6 (03:57→23:30)
[2020-02-03] MEDS: Levalbuterol 1 PUFF INHALER IH SCH ×6 (03:57→23:30)
[2020-02-03] MEDS: Insulin DETEMIR 100 UNIT/ML X5UNITS SUBQ SCH (08:51)
[2020-02-03] MEDS: *HR* Rivaroxaban 10 MG TABLET PO SCH (08:52)
[2020-02-03] MEDS: Spironolactone 25 MG TABLET PO SCH (08:52)
[2020-02-03] MEDS: Cefdinir 300 MG CAPSULE PO SCH ×2 (08:52→21:00)
[2020-02-03] MEDS: Lactobacillus 1 EACH CAP.SPRINK PO SCH ×2 (08:53→21:00)
[2020-02-03] MEDS: Nystatin SUSP 5 ML UD.LIQ PO SCH ×4 (08:53→21:30)
[2020-02-03] MEDS: *HR* Digoxin 0.125 MG TABLET PO SCH (08:53)
[2020-02-03] MEDS: Furosemide 40 MG/4 ML VIAL IVP SCH ×2 (08:53→21:00)
[2020-02-03] MEDS: Insulin LISPRO 300 UNITS/3 ML VIAL SQ SCH ×6 (08:55→16:53)
[2020-02-03 09:04] LABS: Estimated Average Glucose 186 mg/dl; Hemoglobin A1C 8.1 %
[2020-02-03] MEDS: Nystatin Cream 15 GM TUBE TP SCH ×2 (11:40→15:15)
[2020-02-03] MEDS: *HR* OxyCODONE/APAP 10/325 TABLET PO PRN ×3 (11:50→22:00)
[2020-02-03] MEDS: Finasteride 5 MG TABLET PO SCH (17:55)
[2020-02-03] MEDS: Morphine Sulfate Oral CONC 10 MG/0.5 ML ORAL.SYG SL PRN (17:56)
[2020-02-03] MEDS: hydrOXYzine pamoate 25 MG CAPSULE PO PRN (22:00)
[2020-02-04] MEDS: Levalbuterol 1 PUFF INHALER IH SCH ×6 (03:38→23:59)
[2020-02-04] MEDS: Ipratropium 1 PUFF INHALER IH SCH ×5 (03:38→20:01)
[2020-02-04] MEDS: Nystatin Cream 15 GM TUBE TP SCH ×4 (05:43→21:37)
[2020-02-04] MEDS: Insulin LISPRO 300 UNITS/3 ML VIAL SQ SCH ×6 (08:06→17:57)
[2020-02-04] MEDS: Spironolactone 25 MG TABLET PO SCH (09:10)
[2020-02-04] MEDS: Lactobacillus 1 EACH CAP.SPRINK PO SCH ×3 (09:10→21:35)
[2020-02-04] MEDS: *HR* Digoxin 0.125 MG TABLET PO SCH (09:11)
[2020-02-04] MEDS: Furosemide 40 MG/4 ML VIAL IVP SCH ×2 (09:11→21:00)
[2020-02-04] MEDS: *HR* OxyCODONE/APAP 10/325 TABLET PO PRN ×2 (09:11→22:03)
[2020-02-04] MEDS: *HR* Rivaroxaban 10 MG TABLET PO SCH (09:12)
[2020-02-04] MEDS: Nystatin SUSP 5 ML UD.LIQ PO SCH ×4 (09:13→21:33)
[2020-02-04] MEDS: Cefdinir 300 MG CAPSULE PO SCH ×2 (09:13→21:36)
[2020-02-04] MEDS: Insulin DETEMIR 100 UNIT/ML X5UNITS SUBQ SCH (09:14)
[2020-02-04 11:25] LABS: Basophils % 0.1 %; Eosinophils # 0.2 K/mcL (0.0-0.6); Eosinophils % 1.1 %; Hematocrit 46.8 % (37.5-50.1); Hemoglobin 15.1 g/dL (12.9-16.9); Immature Granulocytes % 0.9 % (0-4); Lymphocytes # 1.4 K/mcL (0.6-4.6); Lymphocytes % 8.1 %; Mean Corpuscular HGB Conc 32.3 g/dL (31.6-35.5); Mean Platelet Volume 9.9 fL (9.4-12.4); Monocytes # 1.5 K/mcL (0.0-1.3); Monocytes % 8.9 %; Neutrophils # 13.4 K/mcL (1.6-8.9); Platelet Count 237 K/mcL (140-400); Red Blood Count 5.03 M/mcL (4.19-5.50); Red Cell Distribution Width 13.2 % (11.5-14.5); Segmented Neutrophils % 80.9 %; White Blood Count 16.6 K/mcL (4.3-11.1)
[2020-02-04 11:39] LABS: BUN/Creatinine Ratio 42 (6-26); Blood Urea Nitrogen 37 mg/dL (8-23); Calcium 9.2 mg/dL (8.6-10.3); Carbon Dioxide 33 mEq/L (23-29); Chloride 93 mEq/L (98-107); Glucose 321 mg/dL (70-105); Magnesium 1.7 mg/dL (1.6-2.6); Osmolality,Calculated 297 (280-300); Potassium 4.3 mEq/L (3.5-5.1); Sodium 133 mEq/L (136-145); eGFR For African Americans > 60 (> 60); eGFR For Non-African Americans > 60 (> 60)
[2020-02-04] MEDS: Magic Mouthwash 10 ML UD Cup PO SCH ×2 (11:51→17:56)
[2020-02-04] MEDS: Fluconazole 400 MG/200 ML 400 MG/200 ML BAG IVPB SCH (11:52)
[2020-02-04] MEDS: Finasteride 5 MG TABLET PO SCH (17:56)
[2020-02-04] MEDS: Loratadine 10 MG TABLET PO SCH (21:37)
[2020-02-05 01:10] LABS: Basophils % 0.1 %; Eosinophils # 0.2 K/mcL (0.0-0.6); Eosinophils % 1.4 %; Hematocrit 44.4 % (37.5-50.1); Hemoglobin 14.1 g/dL (12.9-16.9); Immature Granulocytes % 0.5 % (0-4); Lymphocytes # 1.2 K/mcL (0.6-4.6); Lymphocytes % 9.8 %; Mean Corpuscular HGB Conc 31.8 g/dL (31.6-35.5); Mean Corpuscular Hemoglobin 29.6 pg (28.0-33.3); Mean Corpuscular Volume 93.3 fL (83.0-100.0); Mean Platelet Volume 9.6 fL (9.4-12.4); Monocytes # 1.1 K/mcL (0.0-1.3); Monocytes % 9.5 %; Neutrophils # 9.3 K/mcL (1.6-8.9); Platelet Count 206 K/mcL (140-400); Red Blood Count 4.76 M/mcL (4.19-5.50); Red Cell Distribution Width 13.2 % (11.5-14.5); Segmented Neutrophils % 78.7 %; White Blood Count 11.8 K/mcL (4.3-11.1)
[2020-02-05 01:30] LABS: BUN/Creatinine Ratio 33 (6-26); Blood Urea Nitrogen 30 mg/dL (8-23); Calcium 9.2 mg/dL (8.6-10.3); Carbon Dioxide 39 mEq/L (23-29); Chloride 91 mEq/L (98-107); Glucose 113 mg/dL (70-105); Magnesium 1.9 mg/dL (1.6-2.6); Osmolality,Calculated 289 (280-300); Potassium 4.6 mEq/L (3.5-5.1); Sodium 136 mEq/L (136-145); eGFR For African Americans > 60 (> 60); eGFR For Non-African Americans > 60 (> 60)
[2020-02-05] MEDS: Levalbuterol 1 PUFF INHALER IH SCH ×6 (03:30→22:58)
[2020-02-05] MEDS: Ipratropium 1 PUFF INHALER IH SCH ×7 (03:30→22:58)
[2020-02-05] MEDS: Insulin LISPRO 300 UNITS/3 ML VIAL SQ SCH ×4 (08:09→17:24)
[2020-02-05] MEDS: Magic Mouthwash 10 ML UD Cup PO SCH ×3 (08:25→17:30)
[2020-02-05] MEDS: Insulin DETEMIR 100 UNIT/ML X5UNITS SUBQ SCH (08:25)
[2020-02-05] MEDS: Spironolactone 25 MG TABLET PO SCH (08:26)
[2020-02-05] MEDS: Furosemide 40 MG/4 ML VIAL IVP SCH (08:26)
[2020-02-05] MEDS: Nystatin SUSP 5 ML UD.LIQ PO SCH ×4 (08:26→20:07)
[2020-02-05] MEDS: Lactobacillus 1 EACH CAP.SPRINK PO SCH ×2 (08:27→20:06)
[2020-02-05] MEDS: Fluconazole 400 MG/200 ML 400 MG/200 ML BAG IVPB SCH (08:27)
[2020-02-05] MEDS: *HR* Rivaroxaban 10 MG TABLET PO SCH (08:27)
[2020-02-05] MEDS: *HR* Digoxin 0.125 MG TABLET PO SCH (08:27)
[2020-02-05] MEDS: *HR* OxyCODONE/APAP 10/325 TABLET PO PRN ×3 (08:29→21:01)
[2020-02-05] MEDS: Nystatin Cream 15 GM TUBE TP SCH ×3 (11:57→20:07)
[2020-02-05] MEDS: Finasteride 5 MG TABLET PO SCH (17:25)
[2020-02-05] MEDS: Loratadine 10 MG TABLET PO SCH (20:06)
[2020-02-06] MEDS: Levalbuterol 1 PUFF INHALER IH SCH ×6 (03:45→23:36)
[2020-02-06] MEDS: Ipratropium 1 PUFF INHALER IH SCH ×6 (03:45→23:36)
[2020-02-06 04:28] LABS: Basophils % 0.1 %; Eosinophils # 0.2 K/mcL (0.0-0.6); Eosinophils % 2.1 %; Hemoglobin 12.8 g/dL (12.9-16.9); Immature Granulocytes % 0.5 % (0-4); Lymphocytes # 1.4 K/mcL (0.6-4.6); Mean Corpuscular Hemoglobin 30.1 pg (28.0-33.3); Mean Corpuscular Volume 94.1 fL (83.0-100.0); Mean Platelet Volume 9.7 fL (9.4-12.4); Monocytes # 0.8 K/mcL (0.0-1.3); Monocytes % 8.5 %; Platelet Count 184 K/mcL (140-400); Red Blood Count 4.25 M/mcL (4.19-5.50); Red Cell Distribution Width 13.2 % (11.5-14.5); Segmented Neutrophils % 73.8 %; White Blood Count 9.5 K/mcL (4.3-11.1)
[2020-02-06 04:50] LABS: BUN/Creatinine Ratio 24 (6-26); Blood Urea Nitrogen 20 mg/dL (8-23); Calcium 8.9 mg/dL (8.6-10.3); Carbon Dioxide 39 mEq/L (23-29); Chloride 94 mEq/L (98-107); Glucose 117 mg/dL (70-105); Magnesium 1.9 mg/dL (1.6-2.6); Osmolality,Calculated 286 (280-300); Potassium 4.3 mEq/L (3.5-5.1); Sodium 136 mEq/L (136-145); eGFR For African Americans > 60 (> 60); eGFR For Non-African Americans > 60 (> 60)
[2020-02-06] MEDS: *HR* Rivaroxaban 10 MG TABLET PO SCH (07:55)
[2020-02-06] MEDS: Lactobacillus 1 EACH CAP.SPRINK PO SCH ×2 (07:55→19:55)
[2020-02-06] MEDS: Spironolactone 25 MG TABLET PO SCH (07:55)
[2020-02-06] MEDS: *HR* Digoxin 0.125 MG TABLET PO SCH (07:55)
[2020-02-06] MEDS: Insulin DETEMIR 100 UNIT/ML X5UNITS SUBQ SCH (07:56)
[2020-02-06] MEDS: *HR* OxyCODONE/APAP 10/325 TABLET PO PRN ×2 (07:56→13:23)
[2020-02-06] MEDS: Furosemide 40 MG/4 ML VIAL IVP SCH (07:56)
[2020-02-06] MEDS: Nystatin SUSP 5 ML UD.LIQ PO SCH ×4 (07:56→19:55)
[2020-02-06] MEDS: Magic Mouthwash 10 ML UD Cup PO SCH ×3 (07:57→17:40)
[2020-02-06] MEDS: Fluconazole 400 MG/200 ML 400 MG/200 ML BAG IVPB SCH (07:57)
[2020-02-06] MEDS: Insulin LISPRO 300 UNITS/3 ML VIAL SQ SCH ×3 (07:59→17:41)
[2020-02-06] MEDS: Nystatin Cream 15 GM TUBE TP SCH ×3 (12:50→19:56)
[2020-02-06] MEDS: Finasteride 5 MG TABLET PO SCH (17:40)
[2020-02-06] MEDS: Loratadine 10 MG TABLET PO SCH (19:55)
[2020-02-07] MEDS: Levalbuterol 1 PUFF INHALER IH SCH ×5 (03:43→19:47)
[2020-02-07] MEDS: Ipratropium 1 PUFF INHALER IH SCH ×5 (03:43→19:47)
[2020-02-07 05:55] LABS: Basophils % 0.2 %; Eosinophils # 0.2 K/mcL (0.0-0.6); Eosinophils % 1.8 %; Hematocrit 42.9 % (37.5-50.1); Hemoglobin 13.5 g/dL (12.9-16.9); Immature Granulocytes % 0.5 % (0-4); Lymphocytes # 1.2 K/mcL (0.6-4.6); Lymphocytes % 11.7 %; Mean Corpuscular HGB Conc 31.5 g/dL (31.6-35.5); Mean Corpuscular Hemoglobin 29.3 pg (28.0-33.3); Mean Corpuscular Volume 93.3 fL (83.0-100.0); Mean Platelet Volume 10.2 fL (9.4-12.4); Monocytes % 9.5 %; Neutrophils # 7.7 K/mcL (1.6-8.9); Platelet Count 221 K/mcL (140-400); Red Cell Distribution Width 13.3 % (11.5-14.5); Segmented Neutrophils % 76.3 %; White Blood Count 10.1 K/mcL (4.3-11.1)
[2020-02-07 06:13] LABS: BUN/Creatinine Ratio 21 (6-26); Blood Urea Nitrogen 16 mg/dL (8-23); Calcium 9.2 mg/dL (8.6-10.3); Carbon Dioxide 29 mEq/L (23-29); Chloride 96 mEq/L (98-107); Glucose 218 mg/dL (70-105); Magnesium 1.7 mg/dL (1.6-2.6); Osmolality,Calculated 280 (280-300); Potassium 4.8 mEq/L (3.5-5.1); Sodium 131 mEq/L (136-145); eGFR For African Americans > 60 (> 60); eGFR For Non-African Americans > 60 (> 60)
[2020-02-07] MEDS: *HR* OxyCODONE/APAP 10/325 TABLET PO PRN ×2 (06:39→20:48)
[2020-02-07] MEDS: Spironolactone 25 MG TABLET PO SCH (07:58)
[2020-02-07] MEDS: Lactobacillus 1 EACH CAP.SPRINK PO SCH ×2 (07:58→20:37)
[2020-02-07] MEDS: Furosemide 40 MG/4 ML VIAL IVP SCH (07:58)
[2020-02-07] MEDS: Nystatin SUSP 5 ML UD.LIQ PO SCH ×4 (07:58→20:37)
[2020-02-07] MEDS: Magic Mouthwash 10 ML UD Cup PO SCH ×3 (07:58→16:13)
[2020-02-07] MEDS: Nystatin Cream 15 GM TUBE TP SCH ×3 (07:59→20:49)
[2020-02-07] MEDS: *HR* Digoxin 0.125 MG TABLET PO SCH (07:59)
[2020-02-07] MEDS: *HR* Rivaroxaban 10 MG TABLET PO SCH (07:59)
[2020-02-07] MEDS: Insulin DETEMIR 100 UNIT/ML X5UNITS SUBQ SCH (08:05)
[2020-02-07] MEDS: Insulin LISPRO 300 UNITS/3 ML VIAL SQ SCH ×3 (08:08→16:14)
[2020-02-07] MEDS: Fluconazole 400 MG/200 ML 400 MG/200 ML BAG IVPB SCH (10:08)
[2020-02-07] MEDS: Finasteride 5 MG TABLET PO SCH (16:13)
[2020-02-07] MEDS: Loratadine 10 MG TABLET PO SCH (20:37)
[2020-02-08] MEDS: Levalbuterol 1 PUFF INHALER IH SCH ×5 (00:04→16:35)
[2020-02-08] MEDS: Ipratropium 1 PUFF INHALER IH SCH ×5 (00:04→16:35)
[2020-02-08] MEDS: *HR* OxyCODONE/APAP 10/325 TABLET PO PRN ×2 (04:30→09:09)
[2020-02-08 05:59] LABS: Basophils % 0.1 %; Eosinophils # 0.2 K/mcL (0.0-0.6); Eosinophils % 2.4 %; Hemoglobin 12.8 g/dL (12.9-16.9); Immature Granulocytes % 0.7 % (0-4); Lymphocytes # 1.5 K/mcL (0.6-4.6); Lymphocytes % 16.9 %; Mean Corpuscular Volume 93.7 fL (83.0-100.0); Mean Platelet Volume 9.5 fL (9.4-12.4); Monocytes % 11.3 %; Neutrophils # 6.2 K/mcL (1.6-8.9); Platelet Count 197 K/mcL (140-400); Red Blood Count 4.27 M/mcL (4.19-5.50); Red Cell Distribution Width 13.5 % (11.5-14.5); Segmented Neutrophils % 68.6 %; White Blood Count 9.1 K/mcL (4.3-11.1)
[2020-02-08 06:20] LABS: BUN/Creatinine Ratio 20 (6-26); Blood Urea Nitrogen 15 mg/dL (8-23); Calcium 9.2 mg/dL (8.6-10.3); Carbon Dioxide 32 mEq/L (23-29); Chloride 96 mEq/L (98-107); Glucose 158 mg/dL (70-105); Magnesium 1.7 mg/dL (1.6-2.6); Osmolality,Calculated 280 (280-300); Potassium 4.4 mEq/L (3.5-5.1); Sodium 133 mEq/L (136-145); eGFR For African Americans > 60 (> 60); eGFR For Non-African Americans > 60 (> 60)
[2020-02-08] MEDS: Fluconazole 400 MG/200 ML 400 MG/200 ML BAG IVPB SCH (08:26)
[2020-02-08] MEDS: Furosemide 40 MG/4 ML VIAL IVP SCH (08:26)
[2020-02-08] MEDS: Magic Mouthwash 10 ML UD Cup PO SCH ×3 (08:26→16:06)
[2020-02-08] MEDS: Insulin DETEMIR 100 UNIT/ML X5UNITS SUBQ SCH (08:26)
[2020-02-08] MEDS: *HR* Digoxin 0.125 MG TABLET PO SCH (08:27)
[2020-02-08] MEDS: Nystatin SUSP 5 ML UD.LIQ PO SCH ×3 (08:27→16:06)
[2020-02-08] MEDS: *HR* Rivaroxaban 10 MG TABLET PO SCH (08:27)
[2020-02-08] MEDS: Lactobacillus 1 EACH CAP.SPRINK PO SCH (08:27)
[2020-02-08] MEDS: Nystatin Cream 15 GM TUBE TP SCH ×2 (08:27→15:16)
[2020-02-08] MEDS: Spironolactone 25 MG TABLET PO SCH (08:27)
[2020-02-08] MEDS: Insulin LISPRO 300 UNITS/3 ML VIAL SQ SCH ×3 (09:07→15:54)
[2020-02-08 15:43] VITALS: BP 137/68
[2020-02-08] MEDS: Finasteride 5 MG TABLET PO SCH (16:06)
== END 2020-02-08 18:18 | disposition critical access hospital (66) | DRG 871 ==
LOC: 2NENU 19:22 → EMEROOARM 19:22 → SUATTDRO 21:19 → 2NENU 22:09 → SUATTDRO 01-21 14:51
PROVIDERS: ADMIT Student in an Organized Health Care Education/Training Program; ATTEND Internal Medicine